=== PATIENT | male | born 1940 | race Caucasian/White ===

== ENCOUNTER 2017-07-02 14:37 | Emergency (ER) | payer MEDICARE ==
[~2017-07-02] VITALS: Ht 185.4 cm; Wt 86.2 kg
[~2017-07-02 14:37] MED LIST: CARV12.52 PO; CHOL100017 PO; FOLI1TAB16 PO; HYDR25TA9 PO; LEVO150T5 PO; LOSA100T6 PO; METF10002 PO; NAPR1TAB21 PO; TRAM50TA PO
[2017-07-02] MEDS ORDERED: IV NORMAL SALINE 1,000ML 1,000 ML IV SCH (14:47)
--- NOTE | 2017-07-02 14:58 | PHYS DOC ---
Past History Past Medical History: A-Fib, GERD, Hypertension Past Surgical History: Lumbar Laminectomy, Other Additional Past Surgical Histo: to upper back surgeries, 2 lower back surgeries , partial colectomy Smoking: Non-smoker Adult General Chief Complaint Chief Complaint: CHEST PAIN [facility] He is a pleasant 77-year-old male with a history of hypertension and prior question will age or fibrillation who presents with chest pain that began about 30 mins prior to arrival. Patient admits for the last week he's had increasing dyspnea with exertion and else developed chest pain while at rest resting on the couch. Patient's chest pain is over the left chest wall with no radiation to the back shoulder or neck. Patient describes mild dizziness mild shortness of breath with the symptoms. He denies any trauma, cough, fevers, or other symptoms. He is recently just gotten over a dose of herpes zoster on his right chest wall. Patient denies any nausea, vomiting, diarrhea, cough, runny nose or fevers. Patient denies any recent travel outside the country or any car plane or train greater than 6 hours. Patient further denies any lower leg pain or swelling. He pain a 6 of 10 at this time. Differential diagnosis for chest pain: Pericarditis, myocarditis, endocarditis, pneumothorax, pneumonia, aortic dissection, esophageal spasm, esophagitis, peptic ulcer disease, acute coronary syndrome, mediastinitis, Boerhaave syndrome , musculoskeletal chest wall pain, costochondritis, intercostal strain, rib fracture, pulmonary contusion, pneumonitis, pleural effusion, pericardial effusion, pericardial tamponode, and pleurisy. Considered upon arrival EKG timed at 2:43 PM read by me demonstrates. QRS sinus rhythm with a heart rate of 92 there are frequent PVCs and left axis deviation noted. Patient is RR prime in V1 and V2 likely from a right bundle branch block patient. Intervals 158 which is normal patient's QRS interval is 114 which is mildly elevated. Patient has no obvious ST segment T-wave changes consistent with acute or ischemia. Review of Systems Review of Systems Constitutional: Denies fever or chills [] Eyes: Denies change in visual acuity, redness, or eye pain [] HENT: Denies nasal congestion or sore throat [] Respiratory: Denies cough or this patient does have significant shortness of breath with exertion Cardiovascular: No additional information not addressed in HPI [] GI: Denies abdominal pain,vomiting, bloody stools or diarrhea patient has had some nausea[] : Denies dysuria or hematuria [] Musculoskeletal: he does have some chronic intermittent back pain nothing associated with this particular presentation today Integument: Denies rash or skin lesions [] Neurologic: Denies headache, focal weakness or sensory changes [] Endocrine: Denies polyuria or polydipsia [] Allergies Allergies Allergies Coded Allergies Type Severity Reaction Last Updated Verified No Known Drug Allergies 12/30/13 No Physical Exam Physical Exam Vital signs recorded on the chart patient not hypoxic or tachypnea patient noted to be hypertensive. Constitutional: Well developed, well nourished, no acute distress, non-toxic appearance. [] HENT: Normocephalic, atraumatic, bilateral external ears normal, oropharynx moist, no oral exudates, nose normal. [] Eyes: PERRLA, EOMI, conjunctiva normal, no discharge. [] Neck: Normal range of motion, no tenderness, supple, no stridor. [] Cardiovascular:Heart rate regular rhythm, no murmur he does have some chest wall pain tenderness to palpation. There is a well-healed scar or scars that are evolving over the left chest wall in a dermatome around T3-T4 around nipple height secondary to the prior zoster infection Lungs & Thorax: Bilateral breath sounds clear to auscultation [] Abdomen: Bowel sounds normal, soft, no tenderness, no masses, no pulsatile masses. [] Skin: Warm, dry, no erythema, no rash. [] Extremities: No tenderness, no cyanosis, no clubbing, ROM intact, no edema. [] Neurologic: Alert and oriented X 3, normal motor function, normal sensory function, no focal deficits noted. [] Psychologic: Affect normal, judgement normal, mood normal. [] EKG EKG []arrival EKG timed at 2:43 PM read by me demonstrates. QRS sinus rhythm with a heart rate of 92 there are frequent PVCs and left axis deviation noted. Patient is RR prime in V1 and V2 likely from a right bundle branch block patient. Intervals 158 which is normal patient's QRS interval is 114 which is mildly elevated. Patient has no obvious ST segment T-wave changes consistent with acute or ischemia. Radiology/Procedures Radiology/Procedures []he is single view chest x-ray read by me demonstrate some cephalization at the bases which could be atelectasis versus edema. Patient does not demonstrate any significant cardiac megaly or specific infiltrate sits with pneumonia. Thorax pneumomediastinum or rib fractures noted. Course & Med Decision Making Course & Med Decision Making Pertinent Labs and Imaging studies reviewed. (See chart for details) Patient is a pleasant 77-year-old male presents with half an hour of chest pain in the left chest. Patient has risk factors to include a question will atrial fibrillation which denotes possible heart disease hypertension hyperlipidemia. Patient also describes dyspnea on exertion for last week prior to arrival.Differential diagnosis for chest pain: Pericarditis, myocarditis, endocarditis, pneumothorax, pneumonia, aortic dissection, esophageal spasm, esophagitis, peptic ulcer disease, acute coronary syndrome, mediastinitis, Boerhaave syndrome, musculoskeletal chest wall pain, costochondritis, intercostal strain, rib fracture, pulmonary contusion, pneumonitis, pleural effusion, pericardial effusion, pericardial tamponode, and pleurisy. Was considered upon arrival and his EKG demonstrated no acute findings of acute coronary ischemia. Over the course of his symptoms could evaluation patient had an EKG, chest x-ray, troponin, CMP, CBC, magnesium level, TSH level, LFTs completed [] Is now 3:03 PM patient feeling markedly better with 3 similar nitros, aspirin and oxygen patient's pain is presently a 1 Patient's CBC, troponin and CMP + still pending at the time 3:35 PM received a phone call from laboratory as patient had a elevated troponin of 0.3 Laboratory Tests Test 07/02/17 14:54 White Blood Count 7.3 x10^3/uL (4.0-11.0) Red Blood Count 4.23 x10^6/uL (4.30-5.70) L Hemoglobin 14.1 g/dL (13.0-17.5) Hematocrit 41.0 % (39.0-53.0) Mean Corpuscular Volume 97 fL (79-100) Mean Corpuscular Hemoglobin 33 pg (25-35) Mean Corpuscular Hemoglobin Concent 34 g/dL (31-37) Red Cell Distribution Width 13.5 % (11.5-14.5) Platelet Count 213 x10^3/uL (140-400) Neutrophils (%) (Auto) 69 % (31-73) Lymphocytes (%) (Auto) 15 % (24-48) L Monocytes (%) (Auto) 13 % (0-9) H Eosinophils (%) (Auto) 2 % (0-3) Basophils (%) (Auto) 1 % (0-3) Neutrophils # (Auto) 5.0 x10^3uL (1.8-7.7) Lymphocytes # (Auto) 1.1 x10^3/uL (1.0-4.8) Monocytes # (Auto) 0.9 x10^3/uL (0.0-1.1) Eosinophils # (Auto) 0.1 x10^3/uL (0.0-0.7) Basophils # (Auto) 0.1 x10^3/uL (0.0-0.2) D-Dimer (Jessica) 1.11 mg/L (0.00-0.50) H Sodium Level 143 mmol/L (136-145) Potassium Level 4.0 mmol/L (3.5-5.1) Chloride Level 105 mmol/L (98-107) Carbon Dioxide Level 29 mmol/L (21-32) Anion Gap 9 (6-14) Blood Urea Nitrogen 11 mg/dL (8-26) Creatinine 1.4 mg/dL (0.7-1.3) H Estimated GFR (Cockcroft-Gault) 49.0 Glucose Level 113 mg/dL (70-99) H Calcium Level 8.8 mg/dL (8.5-10.1) Magnesium Level 1.9 mg/dL (1.8-2.4) Total Bilirubin 0.5 mg/dL (0.2-1.0) Direct Bilirubin 0.1 mg/dL (0.0-0.2) Aspartate Amino Transferase (AST) 18 U/L (15-37) Alanine Aminotransferase (ALT) 17 U/L (16-63) Alkaline Phosphatase 54 U/L (46-116) Creatine Kinase 48 U/L (39-308) Creatine Kinase MB (Mass) 1.1 ng/mL (0.0-3.6) Creatine Kinase MB Relative Index 2.3 % (0-4) Troponin I Quantitative 0.303 ng/mL (0-0.055) H JD-Vpp-N-Type Natriuretic Peptide 7459 pg/mL (0-449) H Total Protein 7.2 g/dL (6.4-8.2) Albumin 3.7 g/dL (3.4-5.0) Lipase 73 U/L (73-393) I'm is now 4:03 PM I discussed disposition plan with family at the bedside. Because patient is now pain-free after 3 similar nitros, aspirin, oxygen and I wanted patient is feeling markedly better he does have a positive troponin as described at the bedside. Unfortunately he only had about a half an hour symptoms prior to arrival which means that his injury occurred earlier in the week explain why he had increasing shortness of breath while exerting himself. At this point his troponin is 1.[address] segment changes or T-wave changes on EKG consistent with an acute coronary ischemia I will call this an NSTEMI and transfer him to a facility with primary PCI [facility] Consultant note: Spoke with patient's PCP Dr. Lawrence Agricultural Economics Teacher called at of the service 4:00 pm Consult called back at 4:00 pm Discussed the case I presented and he agreed with admission. But because patient has a positive troponin he also agrees with disposition to [facility] so that primary PCI can be initiated if reasonable and expected based on patient's symptoms. Agricultural Economics Teacher note: Internal medicine service at [facility] (Dr. Dupont) Agricultural Economics Teacher called at of the service paged at 4:05 PM Consult called back at 4:31 PM Discussed the case I presented and they agreed with admission. Time of acceptance 30 1 PM Agricultural Economics Teacher note: The cardiology service at [facility] Consultant called at of the service, service paged 4:05 PM Consult called back at 4:10 pm Discussed the case I presented and they agreed with admission. 4:10 PM Impression also noted an elevated d-dimer which will prompt and require CT angios the chest to rule out PE as a cause of his dyspnea. "I have assessed this patient clinically and believe that their condition requires an admission to the hospital. After consulting the admitting physician about this case, they have asked that I admit this patient to their service as an inpatient based on the clinical presentation and my impression." Dragon Disclaimer Dragon Disclaimer This chart was dictated in whole or in part using Voice Recognition software in a busy, high-work load, and often noisy Emergency Department environment. It may contain unintended and wholly unrecognized errors or omissions. Departure Departure: Impression: Primary Impression: Chest pain Additional Impressions: Dyspnea Elevated troponin Abnormal EKG Disposition: 02 XFER SHT-TRM HOSP Condition: GUARDED Referrals: NATASHA LAWRENCE MD (PCP) Problem Qualifiers LACIE TAMEZ MD Jul 02, 2017 14:58
[2017-07-02] MEDS ORDERED: ASPIRIN 81 MG TAB.CHEW PO ONE (15:00)
[2017-07-02] MEDS ORDERED: HYDROmorphone PF 1 MG/ML DISP.SYRIN IV/SQ PRN (15:00)
[2017-07-02] MEDS ORDERED: 0.9 % SODIUM CHLORIDE 10 ML DISP.SYRIN. IV PRN (15:00)
[2017-07-02] MEDS ORDERED: NITROGLYCERIN SUBLINGUAL 0.4 MG BOTTLE OF 25. SL PRN (15:00)
--- NOTE | 2017-07-02 15:01 | EKG ---
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
[2017-07-02 15:25] LABS: BASO # 0.1 x10^3/uL (0.0-0.2); BASO % 1 % (0-3); EOS # 0.1 x10^3/uL (0.0-0.7); EOS % 2 % (0-3); HEMOGLOBIN 14.1 g/dL (13.0-17.5); LYMPH # 1.1 x10^3/uL (1.0-4.8); LYMPH % 15 % (24-48); MEAN CORPUSCULAR HEMOGLOBIN 33 pg (25-35); MEAN CORPUSCULAR HGB CONC 34 g/dL (31-37); MEAN CORPUSCULAR VOLUME 97 fL (79-100); MONO # 0.9 x10^3/uL (0.0-1.1); MONO % 13 % (0-9); NEUT % 69 % (31-73); PLATELET COUNT 213 x10^3/uL (140-400); RED BLOOD COUNT 4.23 x10^6/uL (4.30-5.70); RED CELL DISTRIBUTION WIDTH 13.5 % (11.5-14.5); WHITE BLOOD COUNT 7.3 x10^3/uL (4.0-11.0)
[2017-07-02 15:40] LABS: ALBUMIN 3.7 g/dL (3.4-5.0); CALCIUM 8.8 mg/dL (8.5-10.1); CREATININE 1.4 mg/dL (0.7-1.3); DIRECT BILIRUBIN 0.1 mg/dL (0.0-0.2); MAGNESIUM 1.9 mg/dL (1.8-2.4); TOTAL BILIRUBIN 0.5 mg/dL (0.2-1.0); TOTAL PROTEIN 7.2 g/dL (6.4-8.2)
[2017-07-02] MEDS ORDERED: IOHEXOL 300 MG/ML 75 ML VIAL. IV ONE (17:00)
--- NOTE | 2017-07-02 17:21 | RAD ---
Chest radiograph 07/02/2017 4:47 PM Indication: Chest pain, high blood pressure Comparison: Chest radiograph 04/04/2011 Technique: Single portable upright frontal view of the chest is provided. Findings: Cardiomediastinal silhouette is within normal limits. No pleural effusions, pulmonary vascular congestion or pneumothorax. Mild likely chronic interstitial changes of the lung bases. The lungs are clear. No significant osseous abnormality is identified. Impression: No acute cardiopulmonary process.
[2017-07-02 17:35] VITALS: BP 158/104
--- NOTE | 2017-07-02 17:39 | RAD ---
CT scan of the chest with contrast 07/02/2017 CLINICAL HISTORY: Chest pain for 2 weeks. Shortness of breath on exertion. TECHNIQUE: After the intravenous administration of 60 cc of Omnipaque 300, contiguous, 3 mm axial sections were obtained through the chest. One or more of the following individualized dose reduction techniques were utilized for this study: 1. Automated exposure control. 2. Adjustment of the mA and/or kV according to patient size. 3. Use of iterative reconstruction technique. FINDINGS: There is mild cardiomegaly. Extensive coronary artery calcifications are noted. Atherosclerotic calcification of the thoracic aorta and its branches is noted. The thoracic aorta is tortuous but tapers normally. Prominent hilar and mediastinal lymph nodes are seen which measure 1 to 2.5 cm in size. These may be reactive. Minimal dependent subsegmental atelectasis bilaterally. Mild emphysematous changes are seen involving both lungs. Peripheral linear reticular opacities are seen throughout both lungs which likely reflect UIP. No focal consolidation is noted. No pneumothorax or pleural effusion is seen. Images through the upper abdomen demonstrate areas of scarring involving both kidneys. A 1.4 cm rounded low-attenuation lesion is seen involving the midpole of the right kidney. This likely represents a cyst. Degenerative changes are seen involving the thoracic spine. IMPRESSION: No acute abnormality is seen. Electronically signed by: Armani Melendez MD (07/02/2017 5:35 PM) [facility]
== END 2017-07-02 17:40 | disposition short-term general hospital (02) ==
LOC: ER 14:37
DX: R07.89 Other chest pain (principal); R94.31 Abnormal electrocardiogram [ECG] [EKG]; R79.89 Other specified abnormal findings of blood chemistry; I48.91 Unspecified atrial fibrillation; I10 Essential (primary) hypertension; K21.9 Gastro-esophageal reflux disease without esophagitis
CPT/HCPCS: 36415; 71010; 71260; 80048; 80076; 82553; 83690; 83735; 83880; 84443; 84484; 85025; 85379; 93005; 96361; 96374; 99285; J1170; Q9967; J7030

== ENCOUNTER 2018-04-22 04:17 | Emergency (ER) | payer MEDICARE ==
[~2018-04-22] VITALS: Ht 185.4 cm; Wt 94.3 kg
[~2018-04-22 04:17] MED LIST changes: -METF10002 PO; +METF10003 PO
[2018-04-22] MEDS ORDERED: IV NORMAL SALINE 1,000ML 1,000 ML IV SCH (04:33)
[2018-04-22 04:43] LABS: BASO # 0.1 x10^3/uL (0.0-0.2); BASO % 1 % (0-3); EOS # 0.2 x10^3/uL (0.0-0.7); EOS % 3 % (0-3); HEMATOCRIT 43.2 % (39.0-53.0); HEMOGLOBIN 15.1 g/dL (13.0-17.5); LYMPH # 1.3 x10^3/uL (1.0-4.8); LYMPH % 18 % (24-48); MEAN CORPUSCULAR HEMOGLOBIN 33 pg (25-35); MEAN CORPUSCULAR HGB CONC 35 g/dL (31-37); MEAN CORPUSCULAR VOLUME 95 fL (79-100); MONO # 0.9 x10^3/uL (0.0-1.1); MONO % 12 % (0-9); NEUT # 4.9 x10^3uL (1.8-7.7); NEUT % 67 % (31-73); PLATELET COUNT 219 x10^3/uL (140-400); RED BLOOD COUNT 4.55 x10^6/uL (4.30-5.70); RED CELL DISTRIBUTION WIDTH 14.9 % (11.5-14.5); WHITE BLOOD COUNT 7.4 x10^3/uL (4.0-11.0)
[2018-04-22] MEDS ORDERED: ASPIRIN 81 MG TAB.CHEW PO ONE (04:45)
[2018-04-22] MEDS ORDERED: ONDANSETRON PF 4 MG/2 ML VIAL. IV ONE (04:45)
[2018-04-22] MEDS ORDERED: NITROGLYCERIN SUBLINGUAL 0.4 MG BOTTLE OF 25. SL PRN (04:45)
--- NOTE | 2018-04-22 04:55 | PHYS DOC ---
Past History Past Medical History: A-Fib, GERD, Hypertension Past Surgical History: Lumbar Laminectomy, Other Additional Past Surgical Histo: to upper back surgeries, 2 lower back surgeries , partial colectomy Smoking: Non-smoker Alcohol Use: None Drug Use: None Adult General Chief Complaint Chief Complaint: CHEST PAIN HPI HPI Patient is a 78 year old male who presents with complaint of chest pain. Patient symptoms started approximately 30 minutes prior to arrival. The patient states that he awoke from sleep diaphoretic with substernal pressure-like chest pain. Patient states that his pain currently as 6 out of 10. Patient states that he took aspirin and one nitroglycerin prior to arrival with mild improvement in symptoms. The patient has history of extensive coronary artery disease and recently underwent cardiac bypass surgery in June 2017 at [facility]. Patient follows with Dr. Velazco of cardiology and Dr. Solorzano for primary care. Patient denies fever. Patient does have associated shortness of breath and states that since his surgery he has been dealing with shortness of breath off-and-on. Denies nausea, vomiting, or abdominal pain. Review of Systems Review of Systems Constitutional: Diaphoresis, denies fever or chills [] Eyes: Denies change in visual acuity, redness, or eye pain [] HENT: Denies nasal congestion or sore throat [] Respiratory: Shortness of breath[] Cardiovascular: Chest pain[] GI: Denies abdominal pain, nausea, vomiting, bloody stools or diarrhea [] : Denies dysuria or hematuria [] Musculoskeletal: Denies back pain or joint pain [] Integument: Denies rash or skin lesions [] Neurologic: Denies headache, focal weakness or sensory changes [] All other systems were reviewed and found to be within normal limits, except as documented in this note. Current Medications Current Medications Current Medications Medications (Trade) Dose Ordered Sig/[facility] Start Time Stop Time Status Last Admin Dose Admin Aspirin (Children'S Aspirin) 324 mg 1X ONCE 04/22/18 04:45 04/22/18 04:46 UNV Fentanyl Citrate (Fentanyl 2ml Vial) 50 mcg PRN Q15MIN PRN 04/22/18 04:45 04/23/18 04:44 UNV Nitroglycerin (Nitrostat) 0.4 mg PRN Q5MIN PRN 04/22/18 04:45 04/23/18 04:44 UNV Ondansetron HCl (Zofran) 4 mg 1X ONCE 04/22/18 04:45 04/22/18 04:46 UNV Sodium Chloride 1,000 ml @ 125 mls/hr Q8H 04/22/18 04:33 04/22/18 12:32 UNV Allergies Allergies Allergies Coded Allergies Type Severity Reaction Last Updated Verified No Known Drug Allergies 12/30/13 No Physical Exam Physical Exam Constitutional: Alert, afebrile, appears in mild to moderate discomfort. [] HENT: Normocephalic, atraumatic, bilateral external ears normal, oropharynx moist, no oral exudates, nose normal. [] Eyes: PERRLA, EOMI, conjunctiva normal, no discharge. [] Neck: Normal range of motion, no tenderness, supple, no stridor. [] Cardiovascular:Heart rate regular rhythm, no murmur [] Lungs & Thorax: Bilateral breath sounds clear to auscultation [] Abdomen: Bowel sounds normal, soft, no tenderness, no masses, no pulsatile masses. [] Skin: Warm, dry, no erythema, no rash. [] Back: No tenderness, no CVA tenderness. [] Extremities: No tenderness, no cyanosis, no clubbing, ROM intact, no edema. [] Neurologic: Alert and oriented X 3, normal motor function, normal sensory function, no focal deficits noted. [] Current Patient Data Vital Signs Vital Signs Date Time Temp Pulse Resp B/P (MAP) Pulse Ox O2 Delivery O2 Flow Rate FiO2 04/22/18 04:27 98.0 82 20 99 Room Air Lab Results Laboratory Tests Test 04/22/18 04:27 White Blood Count 7.4 x10^3/uL (4.0-11.0) Red Blood Count 4.55 x10^6/uL (4.30-5.70) Hemoglobin 15.1 g/dL (13.0-17.5) Hematocrit 43.2 % (39.0-53.0) Mean Corpuscular Volume 95 fL (79-100) Mean Corpuscular Hemoglobin 33 pg (25-35) Mean Corpuscular Hemoglobin Concent 35 g/dL (31-37) Red Cell Distribution Width 14.9 % (11.5-14.5) H Platelet Count 219 x10^3/uL (140-400) Neutrophils (%) (Auto) 67 % (31-73) Lymphocytes (%) (Auto) 18 % (24-48) L Monocytes (%) (Auto) 12 % (0-9) H Eosinophils (%) (Auto) 3 % (0-3) Basophils (%) (Auto) 1 % (0-3) Neutrophils # (Auto) 4.9 x10^3uL (1.8-7.7) Lymphocytes # (Auto) 1.3 x10^3/uL (1.0-4.8) Monocytes # (Auto) 0.9 x10^3/uL (0.0-1.1) Eosinophils # (Auto) 0.2 x10^3/uL (0.0-0.7) Basophils # (Auto) 0.1 x10^3/uL (0.0-0.2) EKG EKG Interpreted by me: Heart rate 84, sinus rhythm, prolonged DE interval, left axis deviation, right bundle branch block, no acute ST elevations or depressions , no acute changes from previous EKG[] Radiology/Procedures Radiology/Procedures One view AP chest x-ray interpreted by me: No infiltrate, no effusions, cardiomegaly present.[] Course & Med Decision Making Course & Med Decision Making Pertinent Labs and Imaging studies reviewed. (See chart for details) Patient was given aspirin, nitroglycerin, and fentanyl in the emergency department. Patient states that his chest pressure resolved after treatment. The patient's troponin level was found to be elevated, concerning for possible myocardial infarction. I spoke with the patient's primary physician, Dr. Solorzano, who agreed the patient should be transferred to [facility] as patient may need to have percutaneous coronary artery intervention. I spoke with Dr. aMya who is on-call for Dr. Velazco. He agreed with initial management and agreed with initiation of heparin which was done in the emergency department. The patient was accepted by Dr. Whiting for transfer to [facility]. Patient will be transferred by ground EMS. Patient informed of plan of care and was in agreement at time of disposition.[] Dragon Disclaimer Dragon Disclaimer This electronic medical record was generated, in whole or in part, using a voice recognition dictation system. Departure Departure: Impression: Primary Impression: Unstable angina Disposition: 02 XFER SHT-TRM HOSP Condition: GUARDED Referrals: NATASHA SOLORZANO MD (PCP) RADHA SANCHEZ MD Apr 22, 2018 04:55
--- NOTE | 2018-04-22 04:56 | EKG ---
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
[2018-04-22 05:02] VITALS: BP 150/96
[2018-04-22 05:05] LABS: ALBUMIN 3.6 g/dL (3.4-5.0); ALBUMIN/GLOBULIN RATIO 0.9 (1.0-1.7); CALCIUM 8.9 mg/dL (8.5-10.1); CREATININE 1.6 mg/dL (0.7-1.3); GFR 41.9; MAGNESIUM 2.1 mg/dL (1.8-2.4); TOTAL BILIRUBIN 0.6 mg/dL (0.2-1.0); TOTAL PROTEIN 7.4 g/dL (6.4-8.2)
[2018-04-22 05:07] LABS: POTASSIUM 4.4 mmol/L (3.5-5.1)
[2018-04-22] MEDS ORDERED: HEPARIN for IV BOLUS 10,000 UNIT/10 ML VIAL. IV ONE (05:45)
[2018-04-22] MEDS ORDERED: HEPARIN 25,000UTS/500ML PREMIX 500 ML IV PRN (05:45)
--- NOTE | 2018-04-22 08:43 | RAD ---
EXAM: Portable AP upright chest radiograph DATE: 04/22/2018 4:23 AM INDICATION: chest pain COMPARISON: 07/02/2017 FINDINGS: The heart is moderately enlarged. Atherosclerotic calcifications of the tortuous aorta are seen. Patchy opacities left lung base likely atelectasis. No pleural effusion or pneumothorax. IMPRESSION: 1. Patchy opacities left lung base likely atelectasis. Electronically signed by: Ramesh Levine MD (04/22/2018 8:37 AM) [facility]
== END 2018-04-22 06:06 | disposition short-term general hospital (02) ==
LOC: ER 04:17
DX: I20.0 Unstable angina (principal); I10 Essential (primary) hypertension; K21.9 Gastro-esophageal reflux disease without esophagitis; I48.91 Unspecified atrial fibrillation; I25.810 Atherosclerosis of coronary artery bypass graft(s) without angina pectoris
CPT/HCPCS: 36415; 71045; 80053; 82553; 83735; 83880; 84484; 85025; 93005; 96365; 96375; 96376; 99285; J1644; J2405; J3010; J7030

== ENCOUNTER 2019-06-29 08:26 | Inpatient (IN) | payer MEDICARE ==
[~2019-06-29] VITALS: Ht 185.4 cm; Wt 88.5 kg
[~2019-06-29 08:26] MED LIST changes: -CARV12.52 PO; +CARV12.547 PO; +HYDR-2145 PO; -HYDR25TA9 PO; +LOSA100T14 PO; -LOSA100T6 PO; -METF10003 PO; +METF10007 PO
--- NOTE | 2019-06-29 08:57 | PHYS DOC ---
Past History Past Medical History: A-Fib, GERD, Hypertension Past Surgical History: Lumbar Laminectomy, Other Additional Past Surgical Histo: to upper back surgeries, 2 lower back surgeries, partial colectomy Smoking: Non-smoker Alcohol Use: None Drug Use: None Adult General Chief Complaint Chief Complaint: ABDOMINAL PAIN HPI HPI Patient is a 79 yo m hx of right upper quadrant pain since 12:30 AM 8 soup last night never had pain on the right side of his abdomen before no fever really no vomiting just the pain that sharp and moderate in nature feels a return of the rib cage radiates towards the belly button a little bit. Still has his gallbladder and his appendix he did have a lumbar spine CT on that did show marked multilevel degenerative disease otherwise no acute process. Patient has no fever does have a history of a bypass surgery takes Plavix Review of Systems Review of Systems Constitutional: Denies fever or chills [] Eyes: Denies change in visual acuity, redness, or eye pain [] HENT: Denies nasal congestion or sore throat [] Respiratory: Denies cough or shortness of breath [] Cardiovascular: No additional information not addressed in HPI [] GI: Integument: Denies rash or skin lesions [] Neurologic: Denies headache, focal weakness or sensory changes [] Endocrine: Denies polyuria or polydipsia [] All other systems were reviewed and found to be within normal limits, except as documented in this note. Allergies Allergies Allergies Coded Allergies Type Severity Reaction Last Updated Verified No Known Drug Allergies 12/30/13 No Physical Exam Physical Exam Constitutional: Well developed, well nourished, no acute distress, non-toxic appearance. [] HENT: Normocephalic, atraumatic, bilateral external ears normal, oropharynx moist, no oral exudates, nose normal. [] Eyes: PERRLA, EOMI, conjunctiva normal, no discharge. [] Neck: Normal range of motion, no tenderness, supple, no stridor. [] Cardiovascular:Heart rate regular rhythm, no murmur [] Lungs & Thorax: Bilateral breath sounds clear to auscultation [] Abdomen: Tenderness to palpation right upper quadrant with positive Saunders's Skin: Warm, dry, no erythema, no rash. [] Back: No tenderness, no CVA tenderness. [] Extremities: No tenderness, no cyanosis, no clubbing, ROM intact, no edema. [] Neurologic: Alert and oriented X 3, normal motor function, normal sensory function, no focal deficits noted. [] Psychologic: Affect normal, judgement normal, mood normal. [] EKG EKG []Normal sinus rhythm rate of 85 ischemic changes noted there is a bundle branch block pattern but in light of that no obvious STEMI or ischemia seen. Radiology/Procedures Radiology/Procedures []IMPRESSION: 1. Upper limits of normal common bile duct, likely within normal range for patient's age. 2. Increased hepatic echotexture, may indicate steatosis. 3. Small right renal cyst. 4. Otherwise, unremarkable abdominal ultrasound. Electronically signed by: Martin Salas DO (06/29/2019 10:15 AM) [facility] IMPRESSION: 1. No cause for acute pain is identified. 2. At least moderate stenosis at the origin of the celiac axis with poststenotic dilatation to 14 mm. No dissection. 3. Interstitial lung disease in the bases. 4. Trace pelvic ascites. Correlate for volume overload. 5. Severe lumbar degenerative changes result in multifocal severe central canal stenosis. Impressions: Review of CT report from April 02, 2019 from an outside facility did show diffuse aortoiliac atherosclerosis with involvement of the splenic neck vessels aneurysmal fusiform dilation of the celiac axis identified renal cortical t hinning bilateral renal cysts and nonobstructing small renal calculi and renal cortical thinning. Course & Med Decision Making Course & Med Decision Making Pertinent Labs and Imaging studies reviewed. (See chart for details) []79-year-old male history of A. 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 Departure Departure: Impression: Primary Impression: Abdominal pain Disposition: ADMITTED INPATIENT Admitting Physician: Natasha Solorzano Condition: STABLE Referrals: NATASHA SOLORZANO MD (PCP) TOMMY HEATH MD Jun 29, 2019 08:57
[2019-06-29] MEDS ORDERED: IV NORMAL SALINE 500ML 500 ML IV ONE (09:00)
[2019-06-29] MEDS ORDERED: ONDANSETRON PF 4 MG/2 ML VIAL. IV ONE (09:00)
[2019-06-29] MEDS ORDERED: MORPHINE SULFATE 4 MG/ML DISP.SYRIN. IV ONE ×2 (09:00→10:15)
[2019-06-29 09:09] LABS: BASO # 0.1 x10^3/uL (0.0-0.2); BASO % 1 % (0-3); EOS # 0.1 x10^3/uL (0.0-0.7); EOS % 1 % (0-3); HEMATOCRIT 41.5 % (39.0-53.0); HEMOGLOBIN 14.3 g/dL (13.0-17.5); LYMPH % 12 % (24-48); MEAN CORPUSCULAR HEMOGLOBIN 32 pg (25-35); MEAN CORPUSCULAR HGB CONC 35 g/dL (31-37); MEAN CORPUSCULAR VOLUME 94 fL (79-100); MONO # 0.9 x10^3/uL (0.0-1.1); MONO % 11 % (0-9); NEUT # 6.3 x10^3uL (1.8-7.7); NEUT % 76 % (31-73); PLATELET COUNT 185 x10^3/uL (140-400); RED BLOOD COUNT 4.44 x10^6/uL (4.30-5.70); RED CELL DISTRIBUTION WIDTH 13.6 % (11.5-14.5); WHITE BLOOD COUNT 8.3 x10^3/uL (4.0-11.0)
--- NOTE | 2019-06-29 09:11 | EKG ---
[address] [address] Test Date: 2019-06-29 Test Time: 08:59:29 Pat Name: ИВАН HYLTON Department: Room: Gender: M Public Address System Operator: JOSE : 1940 Requested By: TOMMY HEATH Order Number: [id number] Reading MD: Davey Wallace MD Measurements Intervals [place] Rate: 85 P: 41 GA: 168 QRS: -59 QRSD: 126 T: 99 QT: 380 QTc: 452 Interpretive Statements SINUS RHYTHM ABNORMAL LEFT AXIS DEVIATION LEFT ANTERIOR FASCICULAR BLOCK RIGHT BUNDLE BRANCH BLOCK BIFASCICULAR BLOCK ABNORMAL ECG Electronically Signed On 07-07-2019 15:39:20 CDT by Davey Wallace MD
[2019-06-29 09:20] LABS: ALBUMIN 3.6 g/dL (3.4-5.0); CREATININE 1.4 mg/dL (0.7-1.3); GFR 48.8; POTASSIUM 4.1 mmol/L (3.5-5.1); TOTAL BILIRUBIN 0.9 mg/dL (0.2-1.0); TOTAL PROTEIN 7.2 g/dL (6.4-8.2)
--- NOTE | 2019-06-29 09:43 | RAD ---
EXAM: Chest, single view. HISTORY: Chest pain. COMPARISON: 04/22/2018 FINDINGS: A frontal view of the chest is obtained. There is no infiltrate, pleural effusion or pneumothorax. There is a stable prominent cardiac silhouette and evidence of prior CABG. IMPRESSION: No acute pulmonary finding. Electronically signed by: Lor Espinoza MD (06/29/2019 9:40 AM) [place] [id number]
--- NOTE | 2019-06-29 10:18 | RAD ---
ABDOMEN LTD History: Right upper quadrant pain. Comparison: None. Technique: Transabdominal ultrasound images are obtained of the right upper quadrant. Findings: Visualized pancreas is unremarkable. Liver is increased in echogenicity. Right hepatic lobe measures 16.4 cm. Portal flow is hepatopedal. No cholelithiasis. No gallbladder wall thickening. No pericholecystic fluid. Common bile duct caliber is normal measuring 7 mm in diameter. The right kidney measures 11.7 x 7.0 x 6.1 cm in length. Left renal cyst measures 1.4 x 1.7 x 1.2 cm. No hydronephrosis. IVC not well seen due to overlying bowel gas. Nonaneurysmal aorta. IMPRESSION: 1. Upper limits of normal common bile duct, likely within normal range for patient's age. 2. Increased hepatic echotexture, may indicate steatosis. 3. Small right renal cyst. 4. Otherwise, unremarkable abdominal ultrasound. Electronically signed by: Martin Salas DO (06/29/2019 10:15 AM) [facility]
[2019-06-29] MEDS ORDERED: IOHEXOL 350 MG/ML 100 ML VIAL. IV ONE (10:30)
[2019-06-29 11:17] LABS: BILIRUBIN,URINE NEG (NEG); CLARITY,URINE CLEAR; COLOR,URINE YELLOW; GLUCOSE,URINE NEG (NEG); NITRITE,URINE NEG (NEG); UROBILINOGEN,URINE 0.2 mg/dL (0.2 mg/dL)
[2019-06-29 11:18] LABS: BACTERIA,URINE 0 /HPF (0-FEW); HYALINE CASTS, URINE OCC /HPF; SQUAMOUS EPITHELIAL CELL,UR OCC /LPF; WBC,URINE OCC /HPF (0-4)
--- NOTE | 2019-06-29 12:02 | RAD ---
EXAM: CTA OF THE ABDOMEN AND PELVIS WITH CONTRAST. HISTORY: Abdominal pain. Celiac aneurysm. TECHNIQUE: Computed tomographic angiography of the abdomen and pelvis was performed after the intravenous administration of iodinated contrast. Three-dimensional reconstructions were also performed. COMPARISON: 07/02/2017, 05/21/2016. FINDINGS: Bone windows reveal no suspicious lesions. There are severe degenerative changes of the lumbar spine, resulting in severe central canal stenosis. Median sternotomy changes are noted. Images of the lung bases reveal interstitial line thickening in a subpleural distribution consistent with interstitial lung disease. There is a mild component of groundglass opacity. There is a calcified granuloma in the right lower lobe. There are moderate atherosclerotic calcifications. There is no abdominal aortic aneurysm. The iliac systems are tortuous without stenosis or aneurysm. Both common femoral and proximal superficial femoral arteries are patent. There is moderate to severe stenosis at the origin of the celiac axis. There is poststenotic dilatation beyond this point to 14 mm. This is unchanged. There is no dissection or surrounding stranding. The superior mesenteric artery is moderately calcified without clear stenosis. The inferior mesenteric artery is patent. Both renal arteries demonstrate moderate atherosclerotic calcifications at their origins without clear stenosis. The liver, gallbladder, pancreas, adrenal glands and spleen are unremarkable. Bilateral renal cysts measure up to 3.3 cm on the left. Right renal calculi measure up to 4 mm. There is no hydronephrosis. There are no ureteral calculi. A small amount of free pelvic fluid may be reactive. There is an anastomotic suture line along the descending/sigmoid junction. The appendix is not inflamed. There is no small bowel obstruction. IMPRESSION: 1. No cause for acute pain is identified. 2. At least moderate stenosis at the origin of the celiac axis with poststenotic dilatation to 14 mm. No dissection. 3. Interstitial lung disease in the bases. 4. Trace pelvic ascites. Correlate for volume overload. 5. Severe lumbar degenerative changes result in multifocal severe central canal stenosis. *One or more of the following individualized dose reduction techniques were utilized for this examination: 1. Automated exposure control. 2. Adjustment of the mA and/or kV according to patient size. 3. Use of iterative reconstruction technique. Electronically signed by: Billy Alcantar MD (06/29/2019 11:59 AM) [facility]
[2019-06-29] MEDS: IV NORMAL SALINE 1,000ML 1,000 ML IV SCH ×2 (12:14→20:02)
[2019-06-29] MEDS ORDERED: ONDANSETRON PF 4 MG/2 ML VIAL. IV PRN (12:15)
[2019-06-29] MEDS ORDERED: MORPHINE SULFATE 4 MG/ML DISP.SYRIN. IV PRN (12:15)
[2019-06-29 14:55] VITALS: BP 169/90
[2019-06-29] MEDS ORDERED: ACETAMINOPHEN/CODEINE 300/30MG TABLET PO PRN (16:45)
[2019-06-29] MEDS: CARVEDILOL 12.5 MG TABLET PO SCH (20:02)
[2019-06-29] MEDS: ATORVASTATIN CALCIUM 20 MG TABLET PO SCH (20:02)
[2019-06-29 20:29] VITALS: BP 136/71
[2019-06-30 00:09] VITALS: BP 115/52
[2019-06-30 05:50] VITALS: BP 137/62
[2019-06-30] MEDS ORDERED: LEVOTHYROXINE 175 MCG TABLET PO SCH (06:00)
[2019-06-30] MEDS ORDERED: CLOPIDOGREL BISULFATE 75 MG TABLET PO SCH (08:00)
[2019-06-30] MEDS ORDERED: LEVOTHYROXINE 150 MCG TABLET PO SCH (09:00)
[2019-06-30] MEDS ORDERED: NORMAL SALINE IV ONE (09:00)
[2019-06-30] MEDS ORDERED: SINCALIDE IV ONE (09:00)
[2019-06-30] MEDS ORDERED: METOPROLOL SUCC 24HR ER 25 MG TAB.ER.24H. PO SCH (09:00)
[2019-06-30] MEDS ORDERED: LOSARTAN 50 MG TABLET. PO SCH (09:00)
[2019-06-30] MEDS ORDERED: hydroCHLOROthiazide 25 MG TABLET PO SCH (09:00)
[2019-06-30] MEDS: CARVEDILOL 12.5 MG TABLET PO SCH ×2 (10:12→21:07)
--- NOTE | 2019-06-30 10:25 | RAD ---
EXAM: HEPATOBILIARY SCINTIGRAPHY WITH GALLBLADDER EJECTION FRACTION CALCULATION. HISTORY: Right upper quadrant pain/nausea. TECHNIQUE: 5.5 mCi technetium-99m Choletec were administered intravenously and scintigraphic images of the abdomen obtained. After filling of the gallbladder, 1.8 mcg of sincalide were infused and the gallbladder ejection fraction calculated. FINDINGS: There is prompt hepatic clearance of tracer from the blood pool. There is homogeneous distribution throughout the liver. There is normal filling of the gallbladder and clearance into the biliary tree and small bowel. The gallbladder ejection fraction is well% (normal >35%). IMPRESSION: 1. Decreased gallbladder ejection fraction suggesting biliary dyskinesia. Electronically signed by: Billy Alcantar MD (06/30/2019 10:22 AM) [facility]
[2019-06-30 11:13] VITALS: BP 126/68
--- NOTE | 2019-06-30 11:43 | HP ---
ADMIT DATE: 06/29/2019 HISTORY OF PRESENT ILLNESS: An 79-year-old male came in through the Emergency Room. He has right upper quadrant pain for the last 12 hours prior to admission. The patient had some soup and then began to have this pain in the right upper quadrant. He does have some mild nausea, but no vomiting and he denies fever or chills. He denies any problem with his bowels or bladder. He does not have any diarrhea or constipation, but has this chronic right back pain that is radiating to his back and getting ____ severe, 04/18-05/19. 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 He has a history of coronary artery disease with bypass surgery. Takes Plavix for that. He has had a lumbar laminectomy. He has also had back surgeries x 2 as well as a partial colectomy and hypertension. IMMUNIZATIONS: Influenza, pneumococcal vaccinations are up-to-date. FAMILY HISTORY: One brother with heart disease. Sister with some form of cancer. ALLERGIES: No known allergies. HOME MEDICATIONS: Carvedilol 12.5 mg b.i.d., losartan 100, hydrochlorothiazide 25, levothyroxine 150 mcg no known allergies. SOCIAL HISTORY: The patient denies smoking, alcohol or drug use. REVIEW OF SYSTEMS: The patient is ambulatory. The patient denies any headaches, visual change, blurred vision, double vision. Denies any chest pain, shortness of breath. Does have this abdominal pain primarily in the right upper quadrant area. Nothing makes it better or worse. The patient otherwise no problem with bowels or bladder urination. Neurologically, the patient is alert and oriented. PHYSICAL EXAMINATION: GENERAL: This is a very pleasant gentleman. VITAL SIGNS: Blood pressure 170/90, respiratory rate 18, pulse 90, temperature is 99.8. HEENT: The patient's head was atraumatic, normocephalic. Eyes: PERRLA without jaundice. The mouth and throat were normal. NECK: Supple, no JVD or thyromegaly. LUNGS: Diminished throughout, poor movement of air, but clear. CARDIOVASCULAR: Regular sinus rhythm, S1, S2, without murmurs, rubs or extra heart sound. ABDOMEN: Soft. Definite tenderness in the right upper quadrant area, slight guarding, but no rebounding and positive bowel sounds. No hepatosplenomegaly was noted. EXTREMITIES: No clubbing or cyanosis, nor edema. NEUROLOGIC: The patient was alert and oriented x 3. LABORATORY DATA: The patient's labs are basically unremarkable. UA was unremarkable. CBC: White count 8, hemoglobin 14.43. Electrolytes were normal. Creatinine 1.4, GFR 48. Cardiac enzymes negative. 6-10 rbc's in his urine. Otherwise, a CTA of his abdomen and pelvis were basically unremarkable except for spinal stenosis and stenosis at the origin of the celiac access. Interstitial lung disease on the basis. Abdominal ultrasound was negative for any gallbladder problems, upper limits of normal common bile duct. We will continue to be monitored carefully, make further evaluation on him. He will have the nuclear PIPIDA scan and make further evaluation once that has been performed. IMPRESSION: Right upper quadrant pain. PLAN: As above. NATASHA SOLORZANO MD DR: PEARL/renita JOB#: [id number] / [id number]
[2019-06-30] MEDS: LIPASE/PROTEAS/AMYLAS 10/32/42 CAPSULE.DR. PO SCH ×2 (11:45→17:14)
[2019-06-30 15:05] VITALS: BP 137/72
[2019-06-30 19:35] VITALS: BP 126/64
[2019-06-30 21:07] VITALS: BP 126/64
[2019-06-30] MEDS: ATORVASTATIN CALCIUM 20 MG TABLET PO SCH (21:07)
== END 2019-06-30 21:44 | disposition short-term general hospital (02) | DRG 445 ==
LOC: ER 08:26 → 1 SOUTH 12:10
PROVIDERS: ADMIT Family Medicine; ATTEND Family Medicine
DX: K81.9 Cholecystitis, unspecified (principal); I48.20 Chronic atrial fibrillation, unspecified; I10 Essential (primary) hypertension; I25.10 Atherosclerotic heart disease of native coronary artery without angina pectoris; K21.9 Gastro-esophageal reflux disease without esophagitis; Z82.49 Family history of ischemic heart disease and other diseases of the circulatory system; Z95.1 Presence of aortocoronary bypass graft
CPT/HCPCS: 36415; 71045; 74174; 76705; 78227; 80053; 81001; 83690; 84484; 85025; 93005; 96361; 96374; 96375; 96376; A9537; J0696; J2270; J2405; J2805; J7040; 99285-25; J7030

== ENCOUNTER → 2020-12-12 | Outpatient (CLI) | payer MEDICARE ==
--- NOTE | 2020-12-12 10:08 | RAD ---
Left lower extremity venous duplex study 12/12/2020 Clinical History: Redness and swelling, left calf Technique: Using a combination of real time ultrasound imaging and color-flow and pulse Doppler imagi ng techniques, including spectral analysis, graded compression and augmentation, duplex evaluation of the deep venous system of the left lower extremity was performed. Multiple images were obtained. Findings: There is no sonographic evidence of deep venous thrombosis involving the visualized deep ve nous structures of the left lower extremity Impression: No evidence of deep venous thrombosis involving the left lower extremity Electronically signed by: Jose Spears MD (12/12/2020 10:06 AM) [id number]
== END ==
LOC: US 08:47
PROVIDERS: ATTEND Family Medicine
DX: I87.2 Venous insufficiency (chronic) (peripheral) (principal)
CPT/HCPCS: 93971

== ENCOUNTER → 2021-02-15 | Outpatient (CLI) | payer MEDICARE ==
--- NOTE | 2021-02-15 11:44 | RAD ---
MR#: [id number] Date of Study: 02/15/2021 Ordering Physician: NIKA BARKLEY, Referring Physician: NIKA BARKLEY, Tech: Meryl Keller RVT, BEL APPROVED REPORT Patient Location : OUT-PATIENT Indications Lower Extremity Edema : Grayscale images the bilateral saphenofemoral junctions are grossly unremarkable. The right great sa phenous vein measures approximately 6 mm and has no significant reflux. The left great saphenous vei n has previously been harvested. The bilateral lesser saphenous veins did not demonstrate any evidence of reflux with the right measur ing 5 mm and the left measuring 3 mm. Although not clearly evident on this study there appears to be partial nonocclusive thrombus involving the bilateral lesser saphenous veins. Past History GSV Harvesting for CABG : Left GSV Critical Notification Critical Value: No <Conclusion> 1. No evidence of reflux in the right greater saphenous vein. Left greater saphenous vein is not vi sualized likely related to prior harvesting or ablation 2. Probable bilateral chronic SUPERFICIAL venous thrombosis involving the lesser saphenous veins. Signed by : Davey Wallace, Electronically Approved : 02/15/2021 11:43:20
--- NOTE | 2021-02-15 11:46 | RAD ---
MR#: [id number] Date of Study: 02/15/2021 Ordering Physician: NIKA BARKLEY, Referring Physician: NIKA BARKLEY, Tech: Meryl Keller RVT, BEL APPROVED REPORT Patient Location: OUT-PATIENT Indications Leg pain and swelling Risk Factors Grayscale images of the bilateral lower extremity arterial vessels demonstrates mild diffuse atherosc lerosis. There are triphasic waveforms throughout the arterial course. No significant stenosis is n oted with velocities within the normal ranges with three-vessel runoff. VELOCITY AND DOPPLER WAVEFORM ANALYSIS RIGHT cm/secWaveformSeverity LEFT cm/secWaveform Severity pCFA 117.1TriphasicpCFA 122.9Triphasic Prof Fem Art. 48.0BiphasicProf Fem Art. 54.0Triphasic Fem Art Prox. 99.5TriphasicFem Art Prox. 95.8Triphasic Fem Art Mid. 96.6TriphasicFem Art Mid. 97.0Triphasic Fem Art Dist. 75.2TriphasicFem Art Dist. 92.5Triphasic Pop Art(Fossa) 84.5TriphasicPop Art(AK) 88.0Triphasic TANKER TRUCK DRIVER Prox. 82.1TriphasicPTA Prox. 83.6Triphasic TANKER TRUCK DRIVER Dist. 103.5TriphasicPTA Dist. 128.7Triphasic Per Art Prox. 64.2TriphasicPer Art Prox. 44.8Triphasic TONY Prox. 61.9TriphasicATA Prox. 74.1Triphasic DPA 98TriphasicDPA 85Triphasic Critical Notification Critical Value: No <Conclusion> 1. No significant lower extremity arterial disease bilaterally Signed by : Davey Wallace, Electronically Approved : 02/15/2021 11:45:33
== END ==
LOC: US 07:30
PROVIDERS: ATTEND Internal Medicine Cardiovascular Disease
DX: M79.89 Other specified soft tissue disorders (principal); M79.605 Pain in left leg; M79.604 Pain in right leg
CPT/HCPCS: 93925; 93970

== ENCOUNTER 2021-04-29 17:47 | Emergency (ER) | payer MEDICARE ==
[~2021-04-29] VITALS: Ht 185.4 cm; Wt 89.3 kg
[2021-04-29 18:43] LABS: BASO % 1 % (0-3); EOS # 0.1 x10^3/uL (0.0-0.7); EOS % 1 % (0-3); HEMATOCRIT 39.2 % (39.0-53.0); HEMOGLOBIN 13.6 g/dL (13.0-17.5); LYMPH % 14 % (24-48); MEAN CORPUSCULAR HEMOGLOBIN 33 pg (25-35); MEAN CORPUSCULAR HGB CONC 35 g/dL (31-37); MEAN CORPUSCULAR VOLUME 95 fL (79-100); MONO # 0.7 x10^3/uL (0.0-1.1); MONO % 10 % (0-9); NEUT # 5.5 x10^3uL (1.8-7.7); NEUT % 75 % (31-73); PLATELET COUNT 199 x10^3/uL (140-400); RED BLOOD COUNT 4.12 x10^6/uL (4.30-5.70); RED CELL DISTRIBUTION WIDTH 14.4 % (11.5-14.5); WHITE BLOOD COUNT 7.3 x10^3/uL (4.0-11.0)
[2021-04-29 18:44] LABS: CALCIUM 9.1 mg/dL (8.5-10.1); CREATININE 1.4 mg/dL (0.7-1.3); GFR 48.5; POTASSIUM 4.8 mmol/L (3.5-5.1)
[2021-04-29 18:50] LABS: ALBUMIN 4.1 g/dL (3.4-5.0); ALBUMIN/GLOBULIN RATIO 1.2 (1.0-1.7); TOTAL BILIRUBIN 0.6 mg/dL (0.2-1.0); TOTAL PROTEIN 7.4 g/dL (6.4-8.2)
--- NOTE | 2021-04-29 18:52 | PHYS DOC ---
Past History Past Medical History: A-Fib, CAD, GERD, Hypertension Past Surgical History: No Surgical History Additional Past Surgical Histo: TRIPPLE BYPASS IN 2017 Smoking: Non-smoker Alcohol Use: None Drug Use: None Adult General Chief Complaint Chief Complaint: CHEST PAIN HPI HPI Patient is a 81-year-old male with a past medical history significant for CAD status post triple bypass 5 years ago, A. fib, hypertension, hyperlipidemia and hypothyroidism who presents to the emergency department with a chief complaint of chest pain. States that it started about an hour before coming to the emergency department, was just left of his sternum, dull and achy in nature with radiation up to his left shoulder and down into his abdomen, relatively consistent with no diaphoresis, no dyspnea on exertion, orthopnea, PND or edema, nausea, vomiting, numbness/weakness/tingling or trouble sitting, standing or walking. Denies any recent traumas, fevers, headache cold/flu/Covid symptoms. States he is taking all his medications as prescribed. Review of Systems Review of Systems Review of systems otherwise unremarkable except noted in HPI Allergies Allergies Allergies Coded Allergies Type Severity Reaction Last Updated Verified No Known Drug Allergies 06/29/19 No Physical Exam Physical Exam Constitutional: Well developed, well nourished, no acute distress, non-toxic appearance. [] HENT: Normocephalic, atraumatic, bilateral external ears normal, oropharynx moist, no oral exudates, nose normal. [] Eyes: conjunctiva normal, no discharge. [] Neck: Normal range of motion, no tenderness, supple, no stridor. [] Cardiovascular:Heart rate regular rhythm, no murmur [] Lungs & Thorax: Bilateral breath sounds clear to auscultation [] Abdomen: soft, no tenderness, no masses, no pulsatile masses. [] Skin: Warm, dry, no erythema, no rash. [] Back: No tenderness, no CVA tenderness. [] Extremities: No tenderness, ROM intact, no edema. [] Neurologic: Alert and oriented X 3, no focal deficits noted. [] Psychologic: Affect normal, judgement normal, mood normal. [] Current Patient Data Vital Signs Vital Signs Date Time Temp Pulse Resp B/P (MAP) Pulse Ox O2 Delivery O2 Flow Rate FiO2 04/29/21 18:16 98.7 77 20 122/86 98 Room Air Lab Results Laboratory Tests Test 04/29/21 17:58 Sodium Level 142 mmol/L (136-145) Potassium Level 4.8 mmol/L (3.5-5.1) Chloride Level 106 mmol/L (98-107) Carbon Dioxide Level 29 mmol/L (21-32) Anion Gap 7 (6-14) Blood Urea Nitrogen 14 mg/dL (8-26) Creatinine 1.4 mg/dL (0.7-1.3) H Estimated GFR (Cockcroft-Gault) 48.5 BUN/Creatinine Ratio 10 (6-20) Glucose Level 119 mg/dL (70-99) H Calcium Level 9.1 mg/dL (8.5-10.1) Magnesium Level 2.3 mg/dL (1.8-2.4) Total Bilirubin Pending Aspartate Amino Transferase (AST) Pending Alanine Aminotransferase (ALT) Pending Alkaline Phosphatase Pending Total Protein Pending Albumin Pending Albumin/Globulin Ratio Pending EKG EKG Initial EKG with a rate of 65, QRS of 134, QTc of 477, no STEMI, right bundle branch block Second EKG rate of 65, QRS of 140, QTc of 483, no STEMI, right bundle branch block [] Radiology/Procedures Radiology/Procedures [] Exam: Chest one view INDICATION: Chest pain TECHNIQUE: Frontal view of the chest Comparisons: 06/29/2019 FINDINGS: Sternotomy wires are noted. The cardiomediastinal silhouette and pulmonary vessels are within normal limits. Strandy left basilar airspace disease. No pleural effusion. IMPRESSION: Left basilar atelectasis. Electronically signed by: Gilma Shen MD (04/29/2021 7:12 PM) [facility] Heart Score C/O Chest Pain: Yes HEART Score for Chest Pain: HEART Score for Chest Pain Response (Comments) Value History Highly Suspicious 2 ECG Nonspecific Repolarizatio 1 Age > 65 2 Risk Factors >3 Risk Factors or Hx CAD 2 Total 7 Risk Factors: Risk Factors: DM, Current or recent (<one month) smoker, HTN, HLP, family history of CAD, obesity. Risk Scores: Risk Factors: DM, Current or recent (<one month) smoker, HTN, HLP, family history of CAD, obesity. Course & Med Decision Making Course & Med Decision Making Patient is a 81-year-old male who presents with chest pain that started about an hour before coming to the emergency department. Vital signs not concerning. Physical exam noted above. EKG noted above with no STEMI but abnormal. Given aspirin. Troponin x2 normal. D-dimer normal for age. Chest x-ray not concerning. Laboratory analysis not concerning. Patient remained alert and oriented in no acute distress with no symptoms. Vital signs normal. Discussed all findings with patient and family and did recommend admission to [place] given his age and extensive cardiovascular disease as well as triple bypass for cardiology/his silviculturist to take a look at them and see if there is anything else they like to do. Patient and family stated he felt fine and was not done to stay in the hospital and was going to go on home and call his silviculturist Saturday. Had a long discussion with both patient and patient's about the serious risks of this including worsening chest pain, severe illness, heart attack, stroke, significant illness and hospitalization leading to disability and . Patient and family stated they understood, but felt well and would like to go on home and call his silviculturist on Saturday. Gave strict return precautions to the ED. Advised to call both his silviculturist and primary care on Saturday first thing. Family grateful, verbalized understanding and agreed with plan of discharge. Dragon Disclaimer Dragon Disclaimer This electronic medical record was generated, in whole or in part, using a voice recognition dictation system. Departure Departure: Impression: Primary Impression: Chest pain Disposition: 01 HOME / SELF CARE / HOMELESS Condition: STABLE Referrals: NATASHA SOLORZANO MD (PCP) Patient Instructions: Chest Pain (Nonspecific) Additional Instructions: Thank you for coming into the emergency department tonight and allowing us to take care of you. Please read all the attached information above to go over things we discussed. As discussed I felt you should be admitted to the hospital given your extensive cardiovascular disease history for at least observation and continued EKGs and repeat laboratory analysis. You and your family decided that since you are feeling well you would prefer to just gone home and call your doctor and silviculturist first thing Saturday. We did discuss the risks of this including significant illness, disability, and even if you had a heart attack or stroke among other things. Your very gracious said thank you but you would prefer to just go on home even given the risks and you are in a call your primary care and silviculturist first thing Ja morning. You are given strict return precautions to come back to the emergency department. ESTIVEN MCRAE MD Apr 29, 2021 18:52
[2021-04-29] MEDS ORDERED: ASPIRIN CHEWABLE 81 MG TABLET. PO ONE (19:00)
--- NOTE | 2021-04-29 19:14 | RAD ---
Exam: Chest one view INDICATION: Chest pain TECHNIQUE: Frontal view of the chest Comparisons: 06/29/2019 FINDINGS: Sternotomy wires are noted. The cardiomediastinal silhouette and pulmonary vessels are within normal limits. Strandy left basilar airspace disease. No pleural effusion. IMPRESSION: Left basilar atelectasis. Electronically signed by: Gilma Shen MD (04/29/2021 7:12 PM) [facility]
[2021-04-29 22:01] VITALS: BP 122/55
--- NOTE | 2021-04-30 06:45 | EKG ---
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
--- NOTE | 2021-04-30 06:46 | EKG ---
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
== END 2021-04-29 22:01 | disposition home or self-care (01) ==
LOC: ER 17:47
DX: R07.2 Precordial pain (principal); I48.91 Unspecified atrial fibrillation; K21.9 Gastro-esophageal reflux disease without esophagitis; I10 Essential (primary) hypertension; E03.9 Hypothyroidism, unspecified; E78.5 Hyperlipidemia, unspecified; I25.810 Atherosclerosis of coronary artery bypass graft(s) without angina pectoris
CPT/HCPCS: 36415; 71045; 80053; 83735; 84484; 85025; 85379; 85610; 85730; 93005; 99285